=== PATIENT | female | born 1985 | race American Indian/Alaskan Native ===

== ENCOUNTER 2017-10-30 09:43 | Emergency (ER) | payer SELFPAY ==
[2017-10-30 10:23] LABS: Bilirubin,Urine NEG (Negative); Blood,Urine LG (Negative); Color,Urine Red (Yellow); Mucus,Urine 1+ /HPF; Nitrite,Urine NEG (Negative); Urobilinogen,Urine < 2.0 mg/dL (<2.0)
[2017-10-30 10:25] LABS: Protein,Urine >500 mg/dL (Negative); RBC,Urine > 182.0 /HPF (0.0-6.0); WBC,Urine > 182.0 /HPF (0.0-6.0)
[2017-10-30] MEDS ORDERED: NACL 0.9% 1000 ML 1,000 ML IV ONE (11:23)
--- NOTE | 2017-10-30 11:26 | Emergency Department Report ---
Chief Complaint: Abdominal Pain Stated Complaint: ABDOMINAL PAIN Time Seen by Provider: 10/30/17 11:11 - HPI History of Present Illness: Pt is a 32 yo female who presents with diffuse abd pain x 3 days; pt states she has had pain for 3 days; pt denied any other abdominal surgeries in the past except for C sec 3 months ago; pt states she was anemic at that time and required 2 units of blood; pt states she is currently on her menses; pt states she has been having liquid stools and has been constipated; pt denied melena, hematochezia; pt states she has had nausea but no vomiting; no urinary complaints - ROS Review of Systems: ros: reviewed and neg except as per HPI PE: general: awake , alert in no acute distress Heent: eomi, perrla; mmm: moist; Lungs:clear Heart: RRR; no m,g,r Abd: soft ND. +Bs; tenderness in rlq; no peritoneal signs - Exam Vital Signs: Vital Signs 10/30/17 09:46 Temperature 98.7 F Pulse Rate 94 H Respiratory 18 Rate Blood Pressure 110/76 O2 Sat by Pulse 99 Oximetry MSE screening note: Focused history and physical exam performed. Due to findings the following was ordered: ED Disposition for MSE Condition: Stable Instructions: Abdominal Pain (ED) Referrals: PRIMARY CARE, [Primary Care Provider] - 3-5 Days
[2017-10-30 11:52] LABS: HCG Qualitative,Urine Negative (Negative)
[2017-10-30 12:30] LABS: Basophils % (Auto) 0.3 % (0.0-1.8); Eosinophils # (Auto) 0.1 K/mm3 (0.0-0.4); Hematocrit 38.1 % (30.3-42.9); Hemoglobin 12.6 gm/dl (10.1-14.3); Lymphocytes # (Auto) 1.5 K/mm3 (1.2-5.4); Lymphocytes % (Auto) 17.6 % (13.4-35.0); Mean Corpuscular HGB Conc 33 % (30-34); Mean Corpuscular Hemoglobin 30 pg (28-32); Mean Corpuscular Volume 90 fl (79-97); Monocytes # (Auto) 0.8 K/mm3 (0.0-0.8); Monocytes % (Auto) 9.2 % (0.0-7.3); Platelet Count 214 K/mm3 (140-440); Red Blood Count 4.24 M/mm3 (3.65-5.03); Red Cell Distribution Width 13.5 % (13.2-15.2)
[2017-10-30 12:51] LABS: Alanine Aminotransferase 17 units/L (7-56); BUN/Creatinine Ratio 13; Blood Urea Nitrogen 5 mg/dL (7-17); Calcium 8.3 mg/dL (8.4-10.2); Hemolysis Index 42
--- NOTE | 2017-10-30 14:18 | Emergency Department Report ---
ED Abdominal Pain HPI - General Chief Complaint: Abdominal Pain Stated Complaint: ABDOMINAL PAIN Time Seen by Provider: 10/30/17 11:11 Source: patient, family Mode of arrival: Ambulatory Limitations: No Limitations - History of Present Illness Initial Comments: Pt is a 32 yo female who presents with diffuse abd pain x 3 days; pt states she has had pain for 3 days; pt denied any other abdominal surgeries in the past except for C sec 3 months ago; pt states she was anemic at that time and required 2 units of blood; pt states she is currently on her menses; pt states she has been having liquid stools and has been constipated; pt denied melena, hematochezia; pt states she has had nausea but no vomiting; no urinary complaints. She also reports back pain to her lower back on both sides without any injury. She denies any loss of bowel or bladder function or any numbness or tingling to her extremity. Denies any drainage from site. Denies any fever or chills. Patient able to tolerate liquid. Denies any bloating to abdomen. Denies any urinary burning frequency or urgency MD Complaint: abdominal pain Onset/Timin -: days(s) Location: diffuse Radiation: none Migration to: no migration Severity: moderate Severity scale (0 -10): 5 Quality: cramping Consistency: intermittent Improves With: nothing Worsens With: nothing Context: recent surgery/procedure (status post 3 C-sections 3 months ago without any complaints) Associated Symptoms: nausea, diarrhea, other ( back pain). denies: vomiting, fever, chills, constipation, dysuria, hematemesis, hematochezia, melena, hematuria, anorexia, syncope - Related Data LMP (females 10-50): this week Previous Rx's Medication Instructions Recorded Last Taken Type Nitrofurantoin Monohyd/M-Cryst 100 mg PO Q12H 7 Days #14 capsule 10/30/17 Unknown Rx [Macrobid 100 mg Capsule] Ondansetron [Zofran Odt] 4 mg PO Q8H PRN #12 tab.rapdis 10/30/17 Unknown Rx Allergies Allergy/AdvReac Type Severity Reaction Status Date / Time No Known Allergies Allergy Verified 10/30/17 14:16 ED Review of Systems ROS: Stated complaint: ABDOMINAL PAIN Other details as noted in HPI Comment: All other systems reviewed and negative Constitutional: denies: chills, fever Eyes: denies: eye pain ENT: denies: ear pain, throat pain, congestion Respiratory: no symptoms reported Cardiovascular: denies: chest pain, palpitations, dyspnea on exertion, edema, syncope, paroxysmal nocturnal dyspnea Gastrointestinal: abdominal pain, nausea, diarrhea. denies: vomiting, constipation, hematemesis, melena Genitourinary: abnormal menses. denies: urgency, dysuria, frequency, hematuria , discharge, dyspareunia Musculoskeletal: denies: back pain, joint swelling, arthralgia, myalgia Skin: denies: rash Neurological: denies: headache, numbness, paresthesias, confusion, abnormal gait , vertigo ED Past Medical Hx - Past Medical History Previous Medical History?: No - Surgical History Past Surgical History?: Yes Additional Surgical History: - Family History Family history: no significant - Social History Smoking Status: Never Smoker Substance Use Type: None - Medications Home Medications: Home Medications Medication Instructions Recorded Confirmed Last Taken Type Nitrofurantoin Monohyd/M-Cryst 100 mg PO Q12H 7 Days #14 capsule 10/30/17 Unknown Rx [Macrobid 100 mg Capsule] Ondansetron [Zofran Odt] 4 mg PO Q8H PRN #12 tab.rapdis 10/30/17 Unknown Rx ED Physical Exam - General Limitations: No Limitations General appearance: alert, in no apparent distress - Head Head exam: Present: atraumatic, normocephalic, normal inspection - Eye Eye exam: Present: normal appearance, PERRL, EOMI. Absent: periorbital swelling , periorbital tenderness Pupils: Present: normal accommodation - ENT ENT exam: Present: normal exam, normal orophraynx, mucous membranes moist, TM's normal bilaterally, normal external ear exam - Neck Neck exam: Present: normal inspection, full ROM, other (no C-spine tenderness). Absent: tenderness, meningismus, lymphadenopathy, thyromegaly - Respiratory Respiratory exam: Present: normal lung sounds bilaterally. Absent: respiratory distress, chest wall tenderness, accessory muscle use - Cardiovascular Cardiovascular Exam: Present: regular rate, normal rhythm, normal heart sounds. Absent: systolic murmur, diastolic murmur - GI/Abdominal GI/Abdominal exam: Present: soft, tenderness (rlq), normal bowel sounds. Absent : distended, guarding, rebound, rigid, organomegaly, mass, bruit, pulsatile mass - Extremities Exam Extremities exam: Present: normal inspection, full ROM, normal capillary refill , other (no clubbing, cyanosis or edema. +2 pulses throughout extremities.). Absent: tenderness, pedal edema, joint swelling, calf tenderness - Back Exam Back exam: Present: normal inspection, full ROM, other (ambulates without any difficulties). Absent: tenderness, CVA tenderness (R), CVA tenderness (L), muscle spasm, paraspinal tenderness, vertebral tenderness, rash noted - Neurological Exam Neurological exam: Present: alert, oriented X3, normal gait, reflexes normal. Absent: motor sensory deficit - Psychiatric Psychiatric exam: Present: normal affect, normal mood - Skin Skin exam: Present: warm, dry, intact, other (NOTED HEALED SCAR TO PELVIC AREA. nO SIGNS OF INFECTION). Absent: normal color, rash, erythema - Expanded Skin Exam Expanded Type of lesion: Present: other (SCAR) Distribution of rash: abdomen (POST SURGICAL SCAR HEALED) Description of rash: Absent: tenderness, erythematous, swelling, discharge, fluctuant, indurated ED Course Vital Signs 10/30/17 09:46 Temperature 98.7 F Pulse Rate 94 H Respiratory 18 Rate Blood Pressure 110/76 O2 Sat by Pulse 99 Oximetry Vital Signs 10/30/17 10/30/17 09:46 16:29 Temperature 98.7 F 98.8 F Pulse Rate 94 H 86 Respiratory 18 16 Rate Blood Pressure 110/76 Blood Pressure 102/73 [Left] O2 Sat by Pulse 99 100 Oximetry - Reevaluation(s) Reevaluation #1: 10/30/17 14:18 Patient received Rocephin 1 g IV and normal saline 1 L for UTI and dehydration. She refuses IV contrast for CT scan of the abdomen and pelvis therefore CT scan of abdomen and pelvis ordered without contrast and awaiting test Reevaluation #2: 10/30/17 16:24 CT scan of the abdomen reveals no acute findings. Liver spleen gallbladder pancreas adrenal and kidneys are normal appendix subtly seen but no inflammatory process to suggest appendicitis. Lymph nodes and mesentery normal normal vascular later. Normal bladder no neoplasm than, inflammation, abscess, free fluid, thrombosis or arterial dissection or infarction. No abdominal or pelvic pathology seen. Evidence of without any abscess. ED Medical Decision Making - Lab Data Result diagrams: 10/30/17 11:57 10/30/17 11:57 Lab Results 10/30/17 10/30/17 10/30/17 Range/Units 10:13 11:28 11:57 WBC 8.4 (4.5-11.0) K/mm3 RBC 4.24 (3.65-5.03) M/mm3 Hgb 12.6 (10.1-14.3) gm/dl Hct 38.1 (30.3-42.9) % MCV 90 (79-97) fl MCH 30 (28-32) pg MCHC 33 (30-34) % RDW 13.5 (13.2-15.2) % Plt Count 214 (140-440) K/mm3 Lymph % (Auto) 17.6 (13.4-35.0) % Jay % (Auto) 9.2 H (0.0-7.3) % Eos % (Auto) 1.0 (0.0-4.3) % Baso % (Auto) 0.3 (0.0-1.8) % Lymph # 1.5 (1.2-5.4) K/mm3 Jay # 0.8 (0.0-0.8) K/mm3 Eos # 0.1 (0.0-0.4) K/mm3 Baso # 0.0 (0.0-0.1) K/mm3 Seg Neutrophils % 71.9 H (40.0-70.0) % Seg Neutrophils # 6.0 (1.8-7.7) K/mm3 Sodium (137-145) mmol/L Potassium (3.6-5.0) mmol/L Chloride (98-107) mmol/L Carbon Dioxide (22-30) mmol/L Anion Gap mmol/L BUN (7-17) mg/dL Creatinine (0.7-1.2) mg/dL Estimated GFR ml/min BUN/Creatinine Ratio % Glucose (65-100) mg/dL Calcium (8.4-10.2) mg/dL Total Bilirubin (0.1-1.2) mg/dL AST (5-40) units/L ALT (7-56) units/L Alkaline Phosphatase (35-129) units/L Total Protein (6.3-8.2) g/dL Albumin (3.9-5) g/dL Albumin/Globulin Ratio % Urine Color Red (Yellow) Urine Turbidity Turbid (Clear) Urine pH 5.0 (5.0-7.0) Ur Specific [place] 1.022 (1.003-1.030) Urine Protein >500 (Negative) mg/dL Urine Glucose (UA) 50 (Negative) mg/dL Urine Ketones Neg (Negative) mg/dL Urine Blood Lg (Negative) Urine Nitrite Neg (Negative) Urine Bilirubin Neg (Negative) Urine Urobilinogen < 2.0 (<2.0) mg/dL Ur Leukocyte Esterase Sm (Negative) Urine WBC (Auto) > 182.0 H (0.0-6.0) /HPF Urine RBC (Auto) > 182.0 (0.0-6.0) /HPF U Epithel Cells (Auto) 15.0 H (0-13.0) /HPF Urine Mucus 1+ /HPF Urine HCG, Qual Negative (Negative) 10/30/17 Range/Units 11:57 WBC (4.5-11.0) K/mm3 RBC (3.65-5.03) M/mm3 Hgb (10.1-14.3) gm/dl Hct (30.3-42.9) % MCV (79-97) fl MCH (28-32) pg MCHC (30-34) % RDW (13.2-15.2) % Plt Count (140-440) K/mm3 Lymph % (Auto) (13.4-35.0) % Jay % (Auto) (0.0-7.3) % Eos % (Auto) (0.0-4.3) % Baso % (Auto) (0.0-1.8) % Lymph # (1.2-5.4) K/mm3 Jay # (0.0-0.8) K/mm3 Eos # (0.0-0.4) K/mm3 Baso # (0.0-0.1) K/mm3 Seg Neutrophils % (40.0-70.0) % Seg Neutrophils # (1.8-7.7) K/mm3 Sodium 142 (137-145) mmol/L Potassium 3.7 (3.6-5.0) mmol/L Chloride 102.9 (98-107) mmol/L Carbon Dioxide 23 (22-30) mmol/L Anion Gap 20 mmol/L BUN 5 L (7-17) mg/dL Creatinine 0.4 L (0.7-1.2) mg/dL Estimated GFR > 60 ml/min BUN/Creatinine Ratio 13 % Glucose 86 (65-100) mg/dL Calcium 8.3 L (8.4-10.2) mg/dL Total Bilirubin 0.20 (0.1-1.2) mg/dL AST 22 (5-40) units/L ALT 17 (7-56) units/L Alkaline Phosphatase 104 (35-129) units/L Total Protein 7.1 (6.3-8.2) g/dL Albumin 4.0 (3.9-5) g/dL Albumin/Globulin Ratio 1.3 % Urine Color (Yellow) Urine Turbidity (Clear) Urine pH (5.0-7.0) Ur Specific [place] (1.003-1.030) Urine Protein (Negative) mg/dL Urine Glucose (UA) (Negative) mg/dL Urine Ketones (Negative) mg/dL Urine Blood (Negative) Urine Nitrite (Negative) Urine Bilirubin (Negative) Urine Urobilinogen (<2.0) mg/dL Ur Leukocyte Esterase (Negative) Urine WBC (Auto) (0.0-6.0) /HPF Urine RBC (Auto) (0.0-6.0) /HPF U Epithel Cells (Auto) (0-13.0) /HPF Urine Mucus /HPF Urine HCG, Qual (Negative) Urine culture pending - Radiology Data Radiology results: report reviewed CT scan of the abdomen AND PELVIS without contrast showed no abnormality in spleen, kidney, adrenal glands, pancreas, gallbladder and biliary system, liver. She has struck with no gross focal abnormality no bowel obstruction. No inflammatory processes around in the appendix. Mesentery is normal vascularity and normal bladder normal. Pelvic and abdomen is normal. Surgical incisions seen without any inflammatory process. - Medical Decision Making ED course: Patient here with abdominal pain, nausea and diarrhea. CT scan found the patient has no acute abdominal processes. To include abscess is per surgical abnormality. Incisional line is normal and healed without any redness or tenderness to palpate. Patient was having tenderness in the right lower quadrant separate from incision. CT scan of the abdomen and pelvis did not show any inflammation around her appendix. Urinalysis revealed a patient with large amount of blood and she is on her menses, she has greater than 500 protein but her serum protein and albumin is normal and her blood pressure is at 110/76. Patient is not having any swelling in her legs or any shortness of breath. CBC is normal except she has mild elevation in neutrophils without any increase in white blood cell which suggests mild bacterial infection which she has a urinary tract infection. Urine culture is pending. Patient with some ketones in her urine and she received IV fluid normal saline 1 L and able to tolerate oral liquids in emergency room. She receive Rocephin 1 g IV for urinary tract infection. I discussed patient her lab result, urinalysis with abnormal protein, CT scan findings and she voiced understanding. Patient discharged home with prescription for Macrobid and Keflex and to follow-up with her RECONSIGNMENT CLERK in 3 days. She is visiting in [place] and will be back in [place] in 2 days. Her to call her RECONSIGNMENT CLERK to let her know that she was in the hospital and treated for urinary tract infection. Critical care attestation.: If time is entered above; I have spent that time in minutes in the direct care of this critically ill patient, excluding procedure time. ED Disposition Clinical Impression: Acute cystitis with hematuria, Dehydration, mild, Nausea alone Proteinuria Qualifiers: Proteinuria type: unspecified Qualified Code(s): R80.9 - Proteinuria, unspecified Back pain Qualifiers: Back pain location: low back pain Chronicity: acute Back pain laterality: bilateral Sciatica presence: without sciatica Qualified Code(s): M54.5 - Low back pain Abdominal pain Qualifiers: Abdominal location: generalized Qualified Code(s): R10.84 - Generalized abdominal pain Disposition: TO HOME OR SELFCARE Is pt being admited?: No Does the pt Need Aspirin: No Condition: Stable Instructions: Abdominal Pain (ED), Acute Nausea and Vomiting (ED), Urinary Tract Infection in Women (ED), Dehydration (ED) Additional Instructions: Please increase her fluid intake to 2-3 L of water and/or apple juice, orange juice and cranberry juice daily Please call your RECONSIGNMENT CLERK to schedule an appointment for follow-up visit in 3 days You can return to the emergency room, if your symptoms worsen Take Macrobid for urinary tract infection Take Zofran for nausea YOU have some protein in urine suspect from your menstrual period and you'll have to have a repeat urinalysis in 10 days for evaluation. bLOOD pressure was normal. 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
[2017-10-30] MEDS ORDERED: cefTRIAXone 1 GM in NACL 0.9% 20 ML IV ONE (14:59)
[2017-10-30] MEDS: ROCEPHIN/NS 1 GM/50 ML 1 GM/50 ML BAG IV ONE ×2 (15:23→16:23)
--- NOTE | 2017-10-30 15:43 | Cat Scan Report ---
FINAL REPORT PROCEDURE: CT ABDOMEN PELVIS WO CON TECHNIQUE: Computerized axial tomography of the abdomen and pelvis was performed without intravenous contrast. This study is performed without intravascular contrast material and its sensitivity for abdominal and pelvic pathology, including neoplasms, inflammation, abscess, free fluid, thrombosis, arterial dissection and infarction, is reduced compared with a contrast enhanced study. Oral contrast was not given and evaluation of the bowel is limited. HISTORY: abdominal pain. 3 months post op. RLQ pain COMPARISON: No prior studies are available for comparison. FINDINGS: Visualized lower thorax: No significant abnormality. Liver: Normal size and attenuation. Spleen: Normal size and attenuation. Gallbladder and biliary system: Normal. Pancreas: Normal. Adrenals: Normal. Kidneys: Normal. GI tract: No gross focal abnormality. No evident bowel obstruction. Appendix may be subtly seen. No inflammatory process to suggest appendicitis. Lymph nodes and mesentery: Normal. Vasculature: Normal. Bladder: Normal. Reproductive organs: Normal. Peritoneum: No free fluid. Musculoskeletal structures: No significant abnormality. Other: Infiltration of the subcutaneous fat of the anterior pelvis. IMPRESSION: Infiltration of the anterior pelvic subcutaneous fat possibly scarring. Correlate clinically for possible cellulitis and hematoma. No loculated fluid collection to suggest abscess.
[2017-10-30 16:30] VITALS: BP 102/73
== END 2017-10-30 17:06 | disposition home or self-care (01) ==
LOC: ED 09:43
DX: N30.01 Acute cystitis with hematuria (principal); E86.0 Dehydration; R80.9 Proteinuria, unspecified
CPT/HCPCS: 36415; 74176; 80053; 81001; 81025; 85025; 87086; 96361; 96365; 96376; 99284; J0696; J7030